=== PATIENT | female | born 1960 | race Caucasian/White ===

== ENCOUNTER → 2016-07-17 | Outpatient (CLI) | payer BC | LOC: RAD 15:57 | DX: L72.3 Sebaceous cyst (principal) | CPT/HCPCS: 73110 ==

== ENCOUNTER 2016-09-07 04:41 | Emergency (ER) | payer BC | END 2016-09-07 06:17 | disposition home or self-care (01) | LOC: ER1 04:41 | DX: N39.0 Urinary tract infection, site not specified (principal); M62.830 Muscle spasm of back; Z88.0 Allergy status to penicillin | CPT/HCPCS: 36415; 81001; 87086; 96372; 99283; J1885 ==

== ENCOUNTER → 2021-09-20 | Outpatient (CLI) | payer BC ==
[~2021-09-20] MED LIST: CALTRATE 600 +1 EACH PO; COLACE 100MG C100 MG PO; CYCLOBENZAPRINE10 MG PO; FLEXERIL 10 MG10 MG PO; IBUPROFEN600 MG PO; VITAMIN D31000 UNI1 PO; ZANTAC150 MG PO
== END ==
LOC: EXRD 11:16
DX: M81.0 Age-related osteoporosis without current pathological fracture (principal); M85.88 Other specified disorders of bone density and structure, other site
CPT/HCPCS: 77080